=== PATIENT | male | born 1985 | race Caucasian/White ===

== ENCOUNTER 2019-10-17 19:14 | Emergency (ER) | payer SELFPAY ==
--- NOTE | 2019-10-17 19:19 | NUR ---
Patient LWOT at this time.
== END 2019-10-17 19:50 | disposition left against medical advice (07) ==
LOC: ER 19:14
DX: S49.91XA Unspecified injury of right shoulder and upper arm, initial encounter (principal)

== ENCOUNTER 2022-07-20 03:30 | Inpatient (IN) | payer OTHER ==
[~2022-07-20] VITALS: Ht 177.8 cm; Wt 86.2 kg
[2022-07-20] MEDS ORDERED: SODIUM CHLORIDE 0.9% 1000ML 1,000 ML IV STA ×2 (03:33→05:55)
[2022-07-20] MEDS ORDERED: FAMOTIDINE 20 MG/2 ML VIAL IV STA (03:33)
[2022-07-20] MEDS ORDERED: ONDANSETRON HCL INJ 2MG/ML 2ML 2 MG/ML VIAL IV STA (03:33)
[2022-07-20] MEDS ORDERED: Morphine 4mg INJECTION 4 MG/ML INJ IV STA (03:45)
[2022-07-20 04:00] LABS: BASOPHILS % 0.2 % (0.0-1.0); EOSINOPHILS # (AUTO) 0.8 (0.0-0.4); EOSINOPHILS % 4.5 % (0.0-6.0); HEMOGLOBIN 16.1 g/dL (14.0-18.0); LYMPHOCYTES # (AUTO) 5.8 (1.0-3.2); LYMPHOCYTES % 33.3 % (18.0-39.1); MEAN CORPUSCULAR HEMOGLOBIN 31.6 pg (28-32); MEAN CORPUSCULAR HGB CONC 33.5 g/dL (31-35); MEAN CORPUSCULAR VOLUME 94.1 fL (81-99); MONOCYTES # (AUTO) 1.3 (0.2-0.8); MONOCYTES % 7.3 % (4.4-11.3); NEUTROPHILS # (AUTO) 9.4 (2.1-6.9); NEUTROPHILS % 54.4 % (38.7-80.0); PLATELET COUNT 290 x10e3/uL (140-360); RED CELL DISTRIBUTION WIDTH 11.9 % (11.7-14.4)
[2022-07-20] MEDS ORDERED: HALOPERIDOL LACTATE 5 MG/ML VIAL IV STA (04:12)
[2022-07-20 04:15] LABS: ALBUMIN 4.4 g/dL (3.5-5.0); ALBUMIN/GLOBULIN RATIO 1.6 (0.8-2.0); ANION GAP 17.2 mmol/L (8-16); CALCIUM 9.4 mg/dL (8.4-10.2); CREATININE, SERUM 0.99 mg/dL (0.72-1.25); POTASSIUM 3.2 mmol/L (3.5-5.1)
[2022-07-20] MEDS ORDERED: HALOPERIDOL LACTATE 5 MG/ML VIAL IM ONE (04:15)
[2022-07-20] MEDS ORDERED: HALOPERIDOL LACTATE 5 MG/ML VIAL ONE (04:27)
[2022-07-20] MEDS ORDERED: HYDROMORPHONE 1MG/1ML INJ IV STA (04:36)
[2022-07-20] MEDS ORDERED: IOPAMIDOL 370 MG/ML 100 ML INFUS..BTL INJ ONE (04:54)
[2022-07-20] MEDS ORDERED: SODIUM CHLORIDE 0.9% 1000ML 1,000 ML IV SCH ×2 (05:30→05:45)
[2022-07-20] MEDS ORDERED: DICYCLOMINE HCL 20 MG/2 ML VIAL IM PRN (06:00)
[2022-07-20 06:10] LABS: CREATINE KINASE MB 1.2 ng/mL (0-5.0)
[2022-07-20] MEDS ORDERED: SODIUM CHLORIDE 0.9% 1000ML 1,000 ML ONE (06:12)
[2022-07-20] MEDS ORDERED: DICYCLOMINE HCL 20 MG/2 ML VIAL IM ONE (06:12)
[2022-07-20] MEDS ORDERED: PROMETHAZINE 12.5MG/ NACL 0.9% 12.5 MG/50 ML BAG IV PRN (06:15)
[2022-07-20] MEDS ORDERED: PROMETHAZINE 12.5MG/ NACL 0.9% 50 ML ONE (06:23)
[2022-07-20 06:32] LABS: BAND NEUTROPHILS % (MANUAL) 2 %; EOSINOPHILS % (MANUAL) 1 % (0-7); LYMPHOCYTES % (MANUAL) 19 % (19-48); MONOCYTES % (MANUAL) 3 % (3.4-9.0); NEUTROPHILS % (MANUAL) 60 % (40-74)
[2022-07-20 06:33] LABS: PLATELET ESTIMATE ADEQUATE; PLATELET MORPHOLOGY COMMENT NORMAL; RBC MORPHOLOGY COMMENT NORMAL
[2022-07-20 06:52] LABS: LIPASE 17502 U/L (8-78)
[2022-07-20] MEDS ORDERED: HYDRALAZINE HCL 20 MG/ML VIAL IV PRN (09:45)
[2022-07-20] MEDS: HYDROMORPHONE 1MG/1ML INJ IV PRN ×3 (10:05→20:37)
[2022-07-20 10:06] VITALS: BP 127/73
[2022-07-20] MEDS: FAMOTIDINE 20 MG/2 ML VIAL IV SCH ×2 (10:06→15:59)
[2022-07-20] MEDS: LACTATED RINGER'S 1,000 ML INJ SCH ×3 (10:07→18:37)
[2022-07-20] MEDS: ONDANSETRON HCL INJ 2MG/ML 2ML 2 MG/ML VIAL IV PRN ×3 (10:14→20:37)
[2022-07-20 10:33] VITALS: BP 127/73
[2022-07-20 11:17] LABS: CHOL/HDL RATIO 3.4 (3.9-4.7); MAGNESIUM 1.8 MG/DL (1.3-2.1); PHOSPHORUS 2.6 MG/DL (2.3-4.7)
[2022-07-20 11:36] LABS: THYROID STIMULATING HORMONE 0.591 uIU/mL (0.350-4.940)
[2022-07-20 11:53] VITALS: BP 124/77
[2022-07-20 12:29] LABS: AMPHETAMINES SCREEN,URINE NEGATIVE (NEGATIVE); BENZODIAZEPINES SCREEN,URINE NEGATIVE (NEGATIVE); CLARITY,URINE CLEAR (CLEAR); COLOR,URINE YELLOW (YELLOW); KETONES,URINE NEGATIVE (NEGATIVE); LEUKOCYTE ESTERASE ,URINE NEGATIVE (NEGATIVE); NITRITE,URINE NEGATIVE (NEGATIVE); PHENCYCLIDINE SCREEN,URINE NEGATIVE (NEGATIVE); PROTEIN,URINE DIPSTICK NEGATIVE (NEGATIVE)
[2022-07-20 12:30] LABS: URINE UROBILINOGEN 0.2 mg/dL (0.2 - 1)
[2022-07-20 12:37] LABS: BACTERIA,URINE FEW /HPF; EPITHELIAL CELLS,URINE FEW /LPF; WBC,URINE (MAN) 0-5 /HPF (0-5)
[2022-07-20 16:21] VITALS: BP 121/70
[2022-07-20 21:00] VITALS: BP 121/70
[2022-07-21] VITALS (7 sets, daily range): BP systolic 117–137; BP diastolic 60–89
[2022-07-21] MEDS: LACTATED RINGER'S 1,000 ML INJ SCH ×7 (01:58→23:15)
[2022-07-21] MEDS: ONDANSETRON HCL INJ 2MG/ML 2ML 2 MG/ML VIAL IV PRN ×3 (01:59→23:14)
[2022-07-21] MEDS: HYDROMORPHONE 1MG/1ML INJ IV PRN ×5 (01:59→23:14)
[2022-07-21 05:11] LABS: BASOPHILS % 0.1 % (0.0-1.0); EOSINOPHILS % 0.2 % (0.0-6.0); HEMOGLOBIN 14.3 g/dL (14.0-18.0); LYMPHOCYTES # (AUTO) 1.6 (1.0-3.2); LYMPHOCYTES % 12.6 % (18.0-39.1); MEAN CORPUSCULAR HEMOGLOBIN 31.7 pg (28-32); MEAN CORPUSCULAR HGB CONC 32.5 g/dL (31-35); MEAN CORPUSCULAR VOLUME 97.6 fL (81-99); MONOCYTES # (AUTO) 0.9 (0.2-0.8); MONOCYTES % 7.3 % (4.4-11.3); NEUTROPHILS % 79.3 % (38.7-80.0); PLATELET COUNT 201 x10e3/uL (140-360); RED BLOOD COUNT 4.51 x10e6/uL (4.3-5.7); RED CELL DISTRIBUTION WIDTH 12.5 % (11.7-14.4)
[2022-07-21 05:30] LABS: ALBUMIN 3.3 g/dL (3.5-5.0); ALBUMIN/GLOBULIN RATIO 1.4 (0.8-2.0); ANION GAP 9.9 mmol/L (8-16); CALCIUM 8.3 mg/dL (8.4-10.2); CREATININE, SERUM 0.75 mg/dL (0.72-1.25); POTASSIUM 3.9 mmol/L (3.5-5.1)
[2022-07-21 05:49] LABS: AMYLASE 484 U/L (25-125); LIPASE 1045 U/L (8-78)
[2022-07-21] MEDS: FAMOTIDINE 20 MG/2 ML VIAL IV SCH ×2 (09:00→16:59)
[2022-07-21] MEDS ORDERED: GADOBENATE DIMEGLUMINE 1 ML IV ONE (09:10)
[2022-07-21] MEDS: ACETAMINOPHEN 325 MG SUPP PR PRN ×2 (13:29→23:14)
[2022-07-22] MEDS: LACTATED RINGER'S 1,000 ML INJ SCH ×6 (03:17→20:51)
[2022-07-22] MEDS: HYDROMORPHONE 1MG/1ML INJ IV PRN ×6 (03:18→20:53)
[2022-07-22 04:55] LABS: BASOPHILS % 0.1 % (0.0-1.0); EOSINOPHILS % 0.2 % (0.0-6.0); HEMATOCRIT 41.4 % (38.2-49.6); HEMOGLOBIN 13.5 g/dL (14.0-18.0); LYMPHOCYTES # (AUTO) 1.6 (1.0-3.2); LYMPHOCYTES % 11.7 % (18.0-39.1); MEAN CORPUSCULAR HEMOGLOBIN 31.5 pg (28-32); MEAN CORPUSCULAR HGB CONC 32.6 g/dL (31-35); MEAN CORPUSCULAR VOLUME 96.5 fL (81-99); MONOCYTES # (AUTO) 1.3 (0.2-0.8); MONOCYTES % 9.5 % (4.4-11.3); NEUTROPHILS # (AUTO) 10.5 (2.1-6.9); NEUTROPHILS % 78.2 % (38.7-80.0); PLATELET COUNT 189 x10e3/uL (140-360); RED BLOOD COUNT 4.29 x10e6/uL (4.3-5.7); RED CELL DISTRIBUTION WIDTH 12.8 % (11.7-14.4)
[2022-07-22 05:18] LABS: ALBUMIN 2.8 g/dL (3.5-5.0); ANION GAP 12.7 mmol/L (8-16); CALCIUM 8.5 mg/dL (8.4-10.2); CREATININE, SERUM 0.8 mg/dL (0.72-1.25); POTASSIUM 3.7 mmol/L (3.5-5.1)
[2022-07-22 06:02] VITALS: BP 130/80
[2022-07-22] MEDS: ONDANSETRON HCL INJ 2MG/ML 2ML 2 MG/ML VIAL IV PRN (06:41)
[2022-07-22] MEDS: ACETAMINOPHEN 325 MG SUPP PR PRN (06:41)
[2022-07-22 08:00] VITALS: BP 134/87
[2022-07-22 08:06] VITALS: BP 134/87
[2022-07-22] MEDS: FAMOTIDINE 20 MG/2 ML VIAL IV SCH ×2 (09:48→17:09)
[2022-07-22 11:22] VITALS: BP 147/90
[2022-07-22] MEDS ORDERED: SODIUM CHLORIDE 0.9% 250ML 250 ML ONE (13:45)
[2022-07-22] MEDS: METRONIDAZOLE 500MG/NS 100ML 100 ML IV SCH ×2 (14:26→20:51)
[2022-07-22 16:07] VITALS: BP 138/81
[2022-07-22 20:00] VITALS: BP 134/87
[2022-07-22] MEDS ORDERED: PIPERACILLIN/TAZOBACTAM 3.375 GM VIAL ONE (20:45)
[2022-07-23] VITALS (9 sets, daily range): BP systolic 127–139; BP diastolic 65–91
[2022-07-23] MEDS: HYDROMORPHONE 1MG/1ML INJ IV PRN ×4 (00:11→09:10)
[2022-07-23] MEDS: LACTATED RINGER'S 1,000 ML INJ SCH ×6 (03:09→21:19)
[2022-07-23 04:41] LABS: BASOPHILS % 0.2 % (0.0-1.0); EOSINOPHILS % 0.3 % (0.0-6.0); HEMATOCRIT 38.3 % (38.2-49.6); HEMOGLOBIN 12.3 g/dL (14.0-18.0); MEAN CORPUSCULAR HEMOGLOBIN 31.2 pg (28-32); MEAN CORPUSCULAR HGB CONC 32.1 g/dL (31-35); MEAN CORPUSCULAR VOLUME 97.2 fL (81-99); MONOCYTES # (AUTO) 1.1 (0.2-0.8); MONOCYTES % 10.4 % (4.4-11.3); NEUTROPHILS # (AUTO) 8.6 (2.1-6.9); NEUTROPHILS % 79.7 % (38.7-80.0); PLATELET COUNT 187 x10e3/uL (140-360); RED BLOOD COUNT 3.94 x10e6/uL (4.3-5.7); RED CELL DISTRIBUTION WIDTH 12.1 % (11.7-14.4)
[2022-07-23 05:11] LABS: ALBUMIN 2.5 g/dL (3.5-5.0); ALBUMIN/GLOBULIN RATIO 0.8 (0.8-2.0); ANION GAP 12.3 mmol/L (8-16); CALCIUM 8.4 mg/dL (8.4-10.2); CREATININE, SERUM 0.77 mg/dL (0.72-1.25); MAGNESIUM 1.8 MG/DL (1.3-2.1); PHOSPHORUS 2.7 MG/DL (2.3-4.7); POTASSIUM 3.3 mmol/L (3.5-5.1)
[2022-07-23] MEDS: METRONIDAZOLE 500MG/NS 100ML 100 ML IV SCH (06:21)
[2022-07-23] MEDS: FAMOTIDINE 20 MG/2 ML VIAL IV SCH ×2 (09:10→17:57)
[2022-07-23] MEDS ORDERED: BUPIVACAINE HCL 0.5% INJ 30 ML VIAL INJ ONE (09:37)
[2022-07-23] MEDS ORDERED: IOPAMIDOL 610MG/1ML 300 MG/ML VIAL IV ONE (09:37)
[2022-07-23] MEDS ORDERED: PIPERACILLIN/TAZOBACTAM 3.375 GM VIAL ONE (12:01)
[2022-07-23] MEDS ORDERED: ONDANSETRON HCL INJ 2MG/ML 2ML 2 MG/ML VIAL ONE (12:33)
[2022-07-23] MEDS ORDERED: POVIDONE IODINE 0.05% 0.05 % ML PO ONE (12:33)
[2022-07-23] MEDS ORDERED: GLYCOPYRROLATE INJ 0.2 MG/ML VIAL ONE (12:33)
[2022-07-23] MEDS ORDERED: PROPOFOL IV EMULSION 10 MG/ML 20 ML VIAL ONE (12:33)
[2022-07-23] MEDS ORDERED: ROCURONIUM BROMIDE 10 MG/ML 5ML VIAL IV ONE (12:33)
[2022-07-23] MEDS ORDERED: LIDOCAINE HCL 2% LOCAL INJ 5 ML SDV VIAL INJ ONE (12:33)
[2022-07-23] MEDS ORDERED: DEXAMETHASONE SOD PHOS INJ 4 MG/ML SDV ONE (12:33)
[2022-07-23] MEDS ORDERED: KETOROLAC TROMETHAMINE 30 MG/ML VIAL ONE (12:33)
[2022-07-23] MEDS ORDERED: SEVOFLURANE INHAL SOLN 250 ML PEN BTL ONE (12:33)
[2022-07-23] MEDS ORDERED: NEOSTIGMINE 1 MG/ML 10ML VIAL ONE (12:33)
[2022-07-23] MEDS ORDERED: HYDROCODONE/APAP 7.5MG-325MG 1 EA TAB PO PRN (13:45)
[2022-07-23] MEDS ORDERED: KETOROLAC TROMETHAMINE 30 MG/ML VIAL IV PRN (13:45)
[2022-07-23] MEDS ORDERED: MIDAZOLAM HCL 2 MG/2 ML VIAL ONE (15:26)
[2022-07-23] MEDS ORDERED: FENTANYL CITRATE/PF 100MCG/2 ML INJ ONE (15:26)
[2022-07-24] VITALS: BP 118/79
[2022-07-24] MEDS: LACTATED RINGER'S 1,000 ML INJ SCH ×2 (00:52→05:31)
[2022-07-24] MEDS: HYDROMORPHONE 1MG/1ML INJ IV PRN (00:52)
[2022-07-24 04:00] VITALS: BP 156/77
[2022-07-24 05:53] LABS: BASOPHILS % 0.1 % (0.0-1.0); HEMATOCRIT 35.7 % (38.2-49.6); HEMOGLOBIN 11.5 g/dL (14.0-18.0); LYMPHOCYTES # (AUTO) 0.8 (1.0-3.2); LYMPHOCYTES % 7.6 % (18.0-39.1); MEAN CORPUSCULAR HGB CONC 32.2 g/dL (31-35); MEAN CORPUSCULAR VOLUME 96.2 fL (81-99); MONOCYTES # (AUTO) 0.7 (0.2-0.8); NEUTROPHILS # (AUTO) 8.6 (2.1-6.9); NEUTROPHILS % 85.1 % (38.7-80.0); PLATELET COUNT 240 x10e3/uL (140-360); RED BLOOD COUNT 3.71 x10e6/uL (4.3-5.7); RED CELL DISTRIBUTION WIDTH 11.9 % (11.7-14.4)
[2022-07-24 06:07] LABS: ALBUMIN 2.4 g/dL (3.5-5.0); ALBUMIN/GLOBULIN RATIO 0.8 (0.8-2.0); ANION GAP 13.5 mmol/L (8-16); CALCIUM 8.2 mg/dL (8.4-10.2); CREATININE, SERUM 0.68 mg/dL (0.72-1.25); POTASSIUM 3.5 mmol/L (3.5-5.1)
[2022-07-24 08:24] VITALS: BP 114/78
[2022-07-24 09:04] VITALS: BP 114/78
[2022-07-24] MEDS: FAMOTIDINE 20 MG/2 ML VIAL IV SCH (10:12)
[2022-07-24 12:00] VITALS: BP 119/79
[2022-07-24 16:30] VITALS: BP 119/77
== END 2022-07-24 17:19 | disposition home or self-care (01) | DRG 440 ==
LOC: ER 03:33 → ERHOLD 05:29 → MED/SURG 09:57 → MED/SURG3 07-23 15:14
PROVIDERS: ADMIT Internal Medicine; ATTEND Internal Medicine
PROC: 02HV33Z Insertion of Infusion Device into Superior Vena Cava, Percutaneous Approach (ICD-10-PCS; principal; 2022-07-21)
DX: K85.90 Acute pancreatitis without necrosis or infection, unspecified (principal); E87.6 Hypokalemia; K80.20 Calculus of gallbladder without cholecystitis without obstruction; F12.920 Cannabis use, unspecified with intoxication, uncomplicated; F10.90 Alcohol use, unspecified, uncomplicated; Z20.822 Contact with and (suspected) exposure to COVID-19
CPT/HCPCS: 36415; 36568; 74177; 74183; 76705; 80053; 80061; 80307; 80320; 81001; 82150; 82550; 82553; 83036; 83690; 83735; 84100; 84443; 84484; 85025; 86850; 86900; 87040; 88304; 93005; 94799; 99252; 99285; C1766; J0500; J1100; J1170; J1630; J1885; J2001; J2250; J2270; J2405; J2543; J2550; J2710; J3010; J7030; J7050; J7121; Q9967